=== PATIENT | female | born 1965 | race Two or more races ===

== ENCOUNTER 2018-10-11 18:28 | Emergency (ER) | payer BC, MEDICAID ==
[~2018-10-11] VITALS: Ht 160 cm; Wt 90.7 kg
--- NOTE | 2018-10-11 18:42 | NUR ---
ED Nurse Note: PT WALKED IN TO ER TODAY FROM HOME. AOX4. PT C/O RIGHT SIDED RIB PAIN, 8/ X 5 DAYS AGO AFTER HITTING HER SIDE ON THE TUB DURING A FALL. PT DENIES HEAD TRAUMA OR LOC. PT STATES PAIN IS EXACERBATED WITH DEEP BREATHES BUT NO SIGNS OF RESPIRATORY DISTRESS, RETRACTIONS, OR ACCESSORY MUSCLE USE NOTED. PT ABLE TO SPEAK IN FULL SENTENCES.
[2018-10-11 18:44] VITALS: BP 132/74
--- NOTE | 2018-10-11 19:11 | NUR ---
ED Nurse Note: REPORT GIVEN TO AMARILIS HILLIARD.
--- NOTE | 2018-10-11 19:20 | Emergency Room Report ---
History of Present Illness General Chief Complaint: Pain Source: Patient Present Illness HPI 53-year-old female with no significant past medical history here complaining of pain in the right side of her thorax after falling 1 week ago. Patient is rating the pain 7 out of 10 without radiation denies shortness of breath. Patient has been taking [id number] Aleve with minimal relief however has continued to do her daily activity and heavy lifting. Patient is wearing a bra with hardwire pressing on the affected area. Patient denies generalized chest pain, palpitation, shortness of breath, head injury, loss of consciousness and dizziness. Patient is sitting comfortably, speaking in full sentences and in no apparent distress. Allergies: Coded Allergies: No Known Allergies (Unverified , 10/11/18) Patient History Past Medical History: see triage record Past Surgical History: unable to obtain Pertinent Family History: none Now: No Immunizations: UTD Reviewed Nursing Documentation: PMH: Agreed; PSxH: Agreed Nursing Documentation-PMH Past Medical History: No Stated History Review of Systems All Other Systems: negative except mentioned in HPI Physical Exam Vital Signs Date Time Temp Pulse Resp B/P (MAP) Pulse Ox O2 Delivery O2 Flow Rate FiO2 10/11/18 18:37 98.4 89 17 137/79 (98) 98 Room Air Sp02 EP Interpretation: reviewed, normal General Appearance: normal inspection, well appearing, no apparent distress, alert Head: normocephalic, atraumatic Eyes: bilateral eye normal inspection, bilateral eye PERRL ENT: normal ENT inspection, hearing grossly normal, normal pharynx, no angioedema Neck: normal inspection, full range of motion, supple Respiratory: lungs clear, normal breath sounds, no rhonchi, no respiratory distress, no retraction, no accessory muscle use, no wheezing, other - Right 5- 8 rib tender to palpation, chest symmetrical - no Hyperresonance noted Cardiovascular #1: normal inspection, normal peripheral pulses, regular rate, rhythm, no murmur Gastrointestinal: normal inspection, non tender, soft, no peritonitis Genitourinary: no CVA tenderness Musculoskeletal: normal inspection, back normal Neurologic: normal inspection Psychiatric: normal inspection, judgement/insight normal, memory normal Skin: normal inspection, normal color, no rash Lymphatic: normal inspection, no adenopathy Medical Decision Making PA Attestation All my diagnosis and treatment plans were reviewed ad discussed with my supervising physician Dr. Zamarripa Diagnostic Impression: Primary Impression: Multiple rib fractures ER Course 53-year-old female with no significant past medical history here complaining of pain in the right side of her thorax after falling 1 week ago. Patient is rating the pain 7 out of 10 without radiation denies shortness of breath. Patient has been taking [id number] Aleve with minimal relief however has continued to do her daily activity and heavy lifting. Patient is wearing a bra with hardwire pressing on the affected area. Patient denies generalized chest pain, palpitation, shortness of breath, head injury, loss of consciousness and dizziness. Patient is sitting comfortably, speaking in full sentences and in no apparent distress. Ddx considered but are not limited to: rib fx, rib contusion, chest contusion, Pneumothorax Vital signs: are WNL, pt. is afebrile H&PE are most consistent with : multi rib fracture ORDERS: chest CT no contrast, ibuprofen, tylenol #3 ED INTERVENTIONS: None required at this time. DISCHARGE: At this time pt. is stable for d/c to home. Will provide printed patient care instructions, and any necessary prescriptions. Care plan and follow up instructions have been discussed with the patient prior to discharge. Follow-up with a primary care provider for referral to Ortho no bracing or casting can be done since this is not acute and is Jordy been a week no admission is necessary at this point patient stable at time of discharge CT/MRI/US Diagnostic Results CT/MRI/US Diagnostic Results : Imaging Test Ordered: chest CT no contrast Impression rib fx 5-8 right side, no hemo or pneumothorax Last Vital Signs Date Time Temp Pulse Resp B/P (MAP) Pulse Ox O2 Delivery O2 Flow Rate FiO2 10/11/18 18:44 98.2 84 16 132/74 99 Room Air Disposition: HOME, SELF-CARE Condition: Stable Scripts No Active Prescriptions or Reported Meds Patient Instructions: Rib Fracture, [id number] Additional Instructions: folow With a primary care provider for referral to Ortho take medication as directed avoid strenuous physical activity Reginaldo Hammer Oct 11, 2018 19:20
[2018-10-11] MEDS ORDERED: ACETAMINOPHEN-1 EAC1 ORAL (19:31)
[2018-10-11] MEDS ORDERED: NAPROXEN500 M2 ORAL (19:31)
[2018-10-11 19:37] VITALS: BP 132/74
--- NOTE | 2018-10-11 19:37 | NUR ---
ED Nurse Note: Patient cleared for discharge by ER provider. Provider at bedside providing discharge instructions at this time. Patient verbalized understanding of discharge instructions. Patient request a note to return to work, ER provider accomodated request. Patient ID band removed. Patient escorted to discharge desk for final discharge. Patient departed with all personal belongings.
--- NOTE | 2018-10-13 17:45 | Diagnostic Imaging Report ---
Indication: Chest pain Technique: Continuous helical transaxial imaging of the chest was obtained from the thoracic inlet to the upper abdomen. No intravenous contrast was administered. Coronal 2-D reformats were also obtained. Total Dose length Product (DLP): 627.[address] Dose Index Volume (CTDIvol): 17.31 mGy Comparison: none Findings: There are acute nondisplaced right anterolateral rib fractures involving the fifth, sixth, seventh and eighth ribs. No associated hematoma or significant soft tissue swelling identified. There is no evidence of adjacent lung injury such as contusion or evidence of a pneumothorax. There is no pleural effusion or hemothorax identified. The lungs are clear. Mediastinum appears clear. The liver is likely enlarged although the entire liver is not imaged on this examination. The visualized part of the upper abdomen is otherwise unremarkable. IMPRESSION: Acute nondisplaced fractures of the right anterolateral fifth through eighth ribs. No associated abnormalities. Suggestion of hepatomegaly The CT scanner at [facility] is accredited by the [employer] and the scans are performed using dose optimization techniques as appropriate to a performed exam including Automatic Exposure control.
== END 2018-10-11 19:40 | disposition home or self-care (01) ==
LOC: EMR 18:58
DX: S22.41XA Multiple fractures of ribs, right side, initial encounter for closed fracture (principal); W19.XXXA Unspecified fall, initial encounter; Y92.9 Unspecified place or not applicable
CPT/HCPCS: 71250; 99284